=== PATIENT | female | born 1945 | race Caucasian/White ===

== ENCOUNTER 2020-08-15 05:15 | Observation (INO) ==
--- NOTE | 2020-08-07 10:24 | History & Physical Report ---
Date of Service August 07, 2020 date of surgery: 08/15/20 Procedure: Left Total Knee Arthroplasty Assessment & Plan (1) Arthritis of knee, left: Further care discussed with patient and at this point in time has failed conservative measures and would like to proceed with a left total knee replacement. Plan on discharge will be home with home health physical therapy. DVT prophalaxis with TEDs, SCDs and will also resume her Coumadin postop. Patient will have follow up appointment in our office two weeks post op for staple/suture removal and re-evaluation. Patient otherwise has no other questions or concerns. History of Present Illness Chief Complaint: left knee pain Primary Care Provider: Sade Wen is a 74 year old female who complains of left knee pain, presents for pre-op evaluation prior to a left total knee replacement by dr Alves at [facility]. she complains of pain, decreased range of motion, instability and stiffness in her left knee. she states that the symptoms have been chronic and non-traumatic. Currently the patient states that the symptoms are moderate-severe. The pain is described as aching, sharp and throbbing. The symptoms are aggravated by ascending stairs, daily activities, first steps while awake walking. Prior NSAIDs include Aleve and Ibuprofen. she has been treated with previous corti sone injections in the past without much relief Allergies Allergy/AdvReac Type Severity Reaction Status Date / Time latex Allergy Unknown local skin Verified 08/04/20 11:00 irritation Home Medications Medication Instructions Recorded Confirmed Type Vitamin 100 cap PO PM 06/06/20 08/04/20 History atorvastatin 40 mg PO PM 06/06/20 08/04/20 History cholecalciferol (vitamin D3) 125 mcg PO PM 06/06/20 08/04/20 History [Vitamin D3] diltiazem HCl 120 mg PO QAM 06/06/20 08/04/20 History ferrous sulfate 325 mg PO Q OTHER DAY 06/06/20 08/04/20 History magnesium 400 mg PO BID 06/06/20 08/04/20 History metoprolol tartrate 25 mg PO BID 06/06/20 08/04/20 History prednisone 10 mg PO QAM 06/06/20 08/04/20 History acetaminophen [Tylenol Extra 1,000 mg PO Q6H PRN 08/04/20 08/04/20 History Strength] apixaban [Eliquis] 5 mg PO BID 08/04/20 08/04/20 History aspirin [Aspir-81] 81 mg PO QAM 08/04/20 08/04/20 History omeprazole 20 mg PO QAM 08/04/20 08/04/20 History potassium chloride 10 meq PO BID 08/04/20 08/04/20 History vitamin B complex [Super B Complex] 1 cap PO QPM 08/04/20 08/04/20 History Past Med/Surg History Medical History Anemia Anxiety Aortic aneurysm does not meet criteria for surgery at this time/under surveillance by cardiology Arthritis Atrial fibrillation Depression GERD (gastroesophageal reflux disease) History of DVT (deep vein thrombosis) R/L DVT (08/2019) Hypertension LBBB (left bundle branch block) chronic dating back to at least 2013 per chart review Migraine Mitral valve prolapse per patient, not noted per available 2013 echo Obesity Osteoarthritis Primary pulmonary hypertension right heart cath (2012) with normal PA pressure Pulmonary embolism 08/2019 Pulmonary fibrosis 2L O2 HS + PRN daytime use, previously on sildenfil (no longer taking) Rheumatoid arthritis SOBOE (shortness of breath on exertion) O2 2L/MIN PRN DAYTIME-HS Stress incontinence Thyroid nodule under surveillance Surgical History Deviated septum s/p surgical repair History of anesthesia reaction SLOW TO WAKE UP History of ankle surgery History of appendectomy History of biopsy cardiac, thyroid History of cardiac cath multiple, most recent several years ago- no stents History of cataract surgery History of colonoscopy MULTIPLE History of esophagogastroduodenoscopy (EGD) History of hysterectomy TOTAL History of lung biopsy History of lung surgery REPAIR HIATAL HERNIA?? History of tonsillectomy Status post right knee replacement Right TKA: 05/10/14: SAB at L3-L4 + PNB at [facility] Family History Sister Family history of diabetes mellitus Social History Smoking Status: Never smoker Second Hand Exposure: Yes (FATHER SMOKED); Do You Dip or Chew Tobacco: No; Hx Alcohol Use: No Hx Substance Use: No Preferred Language: Ukrainian Communication Ability: Effective Instructional Support Services Director Required: No Beliefs That Will Affect Care: None Current Living Situation: Alone Other Information That Helps Us Care for You: No Feels Safe at Home: Yes Safety Concerns: Feels Safe At This Time Assistive Devices: Oxygen - at Night and Oxygen - Continuous Assistive Devices Comment: O2 2L/MIN DAYTIME PRN/HS Review of Systems Review of Systems: All systems reviewed & are unremarkable except as noted in HPI & below Constitutional: no fever, no chills and no sweats Respiratory: no cough and no dyspnea Cardiovascular: no chest pain, no dyspnea and no orthopnea Gastrointestinal: no abdominal pain, no nausea and no vomiting Musculoskeletal: as per Subjective / HPI Physical Exam Physical Exam: Ht: 5ft 8in Wt: 99.8kg Constitutional: WD/WN, vitals as above no acute distress Respiratory: normal respiratory effort, lungs clear to auscultation no respiratory distress, no labored breathing and does not use accessory muscles Cardiovascular: RRR, no murmur, no edema Gastrointestinal (Abdomen): normal bowel sounds, soft, nontender, no hepatosplenomegaly Musculoskeletal: Knee: + knee abnormal to inspection (Left Knee-), + effusion (+1 effusion), + surgical incision (well healed portals), + limited ROM of knee (ROM 0/3/110), + knee ROM with crepitation, + joint line tenderness (medial joint line) and + Froy's sign positive; no deformity, no skin erythema, no ecchymosis, no valgus laxity, no varus laxity, anterior drawer test negative, Eve's sign negative and pivot shift test negative Results & Data Results & Data ([facility]) Diagnostic Findings Left Knee X-ray: left knee series confirm advanced degenerative changes to the left knee, greatest lateral compartments and patellofemoral joint, showing joint space narrowing, osteophyte formation and subchondral sclerosis. no acute bony pathology noted.
--- NOTE | 2020-08-09 11:47 | Anesthesiology Consultation ---
Date of Service August 09, 2020 Assessment & Plan (1) Encounter for pre-operative examination: Patient seen at [facility] 06/09/20 by Michaela Weber PA-C. Case subsequently R/S due to covid surge capacity protocol. PCP Clearance 06/20/20 = "Reviewed EKG, chest xray and bloodwork and cleared for surgery." Cardiology Clearance 06/20/20 = "We are going to switch her to Eliquis 5 mg bid. I did tell her to stop her coumadin today and start her Eliquis on 06/22/20. Her HR and BP well controlled on her current regimen. She is scheduled for total knee replacement in June 2020. From a cardiac standpoint she is stable and asymptomatic...she is at low risk for cardiac complications. I told her to hold her Eliquis for 48 hours prior to her procedure*." Spoke to cardiology office. Per provider, OK to hold Eliquis for 72 hours for SAB. Spoke to patient to make her aware as well, last dose Friday 08/11. Possible difficult intubation based one exam per Michaela Weber at 06/09 [facility] appt. S/P Right TKA: 05/10/14: SAB at L3-L4 + PNB at [facility] COVID Status: As of 08/04 nurse assessment, patient denies travel to endemic area, known exposure/sick contacts, or symptoms of COVID19. Preoperative COVID19 testing completed on 08/08 at [facility]. Will obtain results. Chart Review Chart Review: Acceptable Risk for Surgery History Surgery Operation Date: 08/15/20 11:55 Proposed Procedures p Left Total Knee Arthroplasty - Ricardo Alves DO Height/Weight Height: 5 ft 8 in Weight: 99.79 kg Allergies Allergy/AdvReac Type Severity Reaction Status Date / Time latex Allergy Unknown local skin Verified 08/04/20 11:00 irritation Medications Home Medications Medication Instructions Recorded Confirmed Last Taken Vitamin 100 cap PO PM 06/06/20 08/04/20 Unknown atorvastatin 40 mg PO PM 06/06/20 08/04/20 Unknown cholecalciferol (vitamin D3) 125 mcg PO PM 06/06/20 08/04/20 Unknown [Vitamin D3] diltiazem HCl 120 mg PO QAM 06/06/20 08/04/20 Unknown ferrous sulfate 325 mg PO Q OTHER DAY 06/06/20 08/04/20 Unknown magnesium 400 mg PO BID 06/06/20 08/04/20 Unknown metoprolol tartrate 25 mg PO BID 06/06/20 08/04/20 Unknown prednisone 10 mg PO QAM 06/06/20 08/04/20 Unknown acetaminophen [Tylenol Extra 1,000 mg PO Q6H PRN 08/04/20 08/04/20 Unknown Strength] apixaban [Eliquis] 5 mg PO BID 08/04/20 08/04/20 Unknown aspirin [Aspir-81] 81 mg PO QAM 08/04/20 08/04/20 Unknown omeprazole 20 mg PO QAM 08/04/20 08/04/20 Unknown potassium chloride 10 meq PO BID 08/04/20 08/04/20 Unknown vitamin B complex [Super B Complex] 1 cap PO QPM 08/04/20 08/04/20 Unknown Past Medical History Medical History Anemia Anxiety Aortic aneurysm does not meet criteria for surgery at this time/under surveillance by cardiology Arthritis Atrial fibrillation Depression GERD (gastroesophageal reflux disease) History of DVT (deep vein thrombosis) R/L DVT (08/2019) Hypertension LBBB (left bundle branch block) chronic dating back to at least 2013 per chart review Migraine Mitral valve prolapse per patient, not noted per available 2013 echo Obesity Osteoarthritis Primary pulmonary hypertension right heart cath (2012) with normal PA pressure Pulmonary embolism 08/2019 Pulmonary fibrosis 2L O2 HS + PRN daytime use, previously on sildenfil (no longer taking) Rheumatoid arthritis SOBOE (shortness of breath on exertion) O2 2L/MIN PRN DAYTIME-HS Stress incontinence Thyroid nodule under surveillance Exercise / Class Metabolic Activity III < 4 Walking/Shop/Light housework Past Family History Family History Sister Family history of diabetes mellitus Past Surgical History Surgical History Deviated septum s/p surgical repair History of anesthesia reaction SLOW TO WAKE UP History of ankle surgery History of appendectomy History of biopsy cardiac, thyroid History of cardiac cath multiple, most recent several years ago- no stents History of cataract surgery History of colonoscopy MULTIPLE History of esophagogastroduodenoscopy (EGD) History of hysterectomy TOTAL History of lung biopsy History of lung surgery REPAIR HIATAL HERNIA?? History of tonsillectomy Status post right knee replacement Right TKA: 05/10/14: SAB at L3-L4 + PNB at [facility] Social History Smoking Status: Never smoker tobacco type: cigarettes Do You Dip or Chew Tobacco: No Hx Alcohol Use: No Hx Substance Use: No substance use type: does not use Testing Laboratory Results 08/04/20 WBC: 12.02 H/H: 11.4/38 PLATELETS: 274 SODIUM: 143 POTASSIUM: 4.2 CHLORIDE: 105 CO2: 30 BUN: 24 CREATININE: 1.10 GLUCOSE: 94 PT: 16.9 PTT: 36.7 INR: 1.49 UA: no bacteria A1C: 5.8% Electrocardiogram Date: 06/09/20 Echocardiogram Date: 02/05/19 EF: 60% LV Function: normal Other Findings: + LVH and + diastolic dysfunction (grade I) Valvular Disease: + MR (mild) Normal pulmonary artery pressure at 27 mmHg. Other Testing Electrocardiogram Date: 06/09/20 Rhythm with first-degree AV block at 73 bpm. Left bundle branch block. (LBBB chronic dating back to at least 2013 per chart review) Chest X-Ray Date: 06/09/20 FINDINGS: Cardiac silhouette is upper limits of normal in size. Blunting of the costophrenic angles with mild linear bibasilar densities suggestive of scarring/atelectasis. Postoperative changes of the lateral left lung. No pneumothorax or overt pulmonary edema. Bones appear grossly intact. IMPRESSION: Blunting of the costophrenic angles suggests small pleural effusions versus pleural parenchymal scarring. Linear bibasilar densities are likely atelectatic. Postoperative changes of the left lung. Will forward report to PCP/cardiology (patient will be seeing both prior to surgery). Cardiac Catheterization Date: 02/11/13 RHC showed normal resting RV and LV filling pressures with normal resting PA pressures and preserved cardiac output. Resting PVR was borderline elevated at 2.77. Diagnosis of exercise-induced PH.
[2020-08-15] MEDS ORDERED: GABAPENTIN 300 MG CAP PO SCH (06:00)
[2020-08-15] MEDS ORDERED: LR 500ML BOLUS, THEN 15ML/HR IV SCH (06:00)
[2020-08-15] MEDS ORDERED: TRANEXAMIC ACID 1,000 MG **IV Pre-op IV SCH (06:00)
[2020-08-15] MEDS ORDERED: ACETAMINOPHEN 500 MG TAB PO SCH (06:00)
[2020-08-15] MEDS ORDERED: oxyCODONE HCL 10 MG TABCR (OxyCONTIN) PO SCH (06:00)
[2020-08-15] MEDS ORDERED: ROPIVACAINE 0.5% HCL/PF 150 MG, BUPIVACAINE 0.75% MPF 20 ML, EPINEPHrine 30MG/30ML (OR ... INSTIL SCH (06:00)
[2020-08-15] MEDS ORDERED: FAMOTIDINE 20 MG TAB PO SCH (06:00)
[2020-08-15] MEDS ORDERED: LR 500ML BOLUS IV SCH (06:00)
[2020-08-15] MEDS ORDERED: CeleBREX 200 MG CAP PO SCH (06:00)
[2020-08-15] MEDS ORDERED: ceFAZolin 2000MG 2,000 MG/15 ML SYR IV SCH (06:00)
[2020-08-15] MEDS ORDERED: TRANEXAMIC ACID / 0.7% NACL 1,000 MG/100 ML BAG IV SCH (06:00)
[2020-08-15] MEDS ORDERED: METOCLOPRAMIDE HCL 10 MG TABLET PO SCH (06:00)
[2020-08-15] MEDS ORDERED: BUPIVACAINE 0.5 % 5 MG/1 ML PF 10ML VIAL ONE (06:23)
[2020-08-15] MEDS ORDERED: EPINEPHrine INJ 1 MG/ML AMP ONE (06:23)
[2020-08-15] MEDS ORDERED: ROPIVACAINE 0.5% 5 MG/ML 30 ML VIAL ONE (06:24)
[2020-08-15] MEDS ORDERED: MIDAZOLAM HCL 1 MG/ML 2ML VIAL ONE (06:56)
[2020-08-15] MEDS ORDERED: ATROPINE SULFATE 0.1 MG/ML 10ML SYR IV PRN (06:59)
[2020-08-15] MEDS ORDERED: ePHEDrine sulfate 50 MG/ML AMP IV PRN (06:59)
[2020-08-15] MEDS ORDERED: PHENYLEPHRINE 100MCG/ML 5ML SYR IV PRN (06:59)
[2020-08-15] MEDS ORDERED: MEPERIDINE HCL 25 MG/ML CARP/VIAL IV PRN (06:59)
[2020-08-15] MEDS ORDERED: HYDROmorphone INJ 1 MG/ML SYRINGE IV PRN (06:59)
[2020-08-15] MEDS ORDERED: LABETALOL HCL IV 5 MG/ML 20ML IV PRN (06:59)
[2020-08-15] MEDS ORDERED: ONDANSETRON INJ 2 MG/ML 2 ML VIAL IV PRN ×2 (06:59→10:13)
[2020-08-15] MEDS ORDERED: fentaNYL citrate 100 MCG/2 ML VIAL IV PRN (06:59)
[2020-08-15] MEDS ORDERED: ORTHO JOINT ANESTHETIC ONE (07:00)
[2020-08-15] MEDS ORDERED: BACITRACIN INJ 50,000 UNIT VIAL ONE (07:00)
--- NOTE | 2020-08-15 07:16 | History & Physical Bridge Note ---
Date of Service August 15, 2020 History & Physical Bridge Note I have examined the patient, reviewed the History & Physical and in the interval since the performance of the History & Physical I have noted the following changes of clinical significance: no changes noted
--- NOTE | 2020-08-15 08:28 | Operative Report ---
Post Operative Report Pre & Post Diagnosis Operation Date: 08/15/20 07:15 Pre-Op Diagnosis: Osteoarthritis, Left Knee Post-Op Diagnosis: Osteoarthritis, Left Knee I identified the patient and participated in the time-out.: Yes Procedure Operation Date: 08/15/20 07:15 Actual Procedures p Left Total Knee Arthroplasty(LeftUtilizing Cruz & Nephew journey 2 patient matched total knee arthroplasty size 4 femur 4 tibia 15 polyethylene 29 oval patella) - Ricardo Alves DO Surgeon Ricardo Alves DO Air Turning Machine Feeder Darryl CRUZ Estimated Blood Loss 5 Findings Consistent with Post-Op Diagnosis Patient presents with severe end-stage tricompartmental degenerative joint disease no response to conservative management the above findings were not consistent with subchondral sclerosis marginal osteophytes eburnated [id number] varus alignment moderate to large effusion Specimens Bone and cartilage Drains Medium bore Hemovac Anesthesia Type MAC Spinal Regional Complications none Disposition Accompanied Patient To Recovery: No Disposition: Recovery Room Indications Patient presents with severe end-stage DJD no response to conservative management for total knee arthroplasty patient failed attempted corticosteroid injection Visco supplementation relative rest activity modification bracing physical therapy the above intraoperative findings were noted Description of Procedure After proper prepping and draping of the left lower extremity anterior midline incision was made over the region of the extensor extensor mechanism after meticulous hemostasis was obtained and maintained in subcutaneous tissues a medial parapatellar incision was made The patella was subluxed lateralward the medial lateral gutter were cleaned from any hypertrophic synovitis and scar tissue of the distal femoral block was placed and the distal femoral osteotomy cut was made subsequently the chamfers anterior and posterior osteotomy cuts were made utilizing the 4-in-1 block the tibia was subsequently subluxed anteriorward medial and ateral meniscal remnants were excised in their entirety remnants of the anterior and posterior cruciate ligaments were excised in their entirety excellent exposure of the proximal tibia was obtained the tibial osteotomy guide was placed on the proximal tibial osteotomy cut was made once again the knee was irrigated with copious amounts of sterile saline solution the patella was subsequently everted lateralward thickened scar tissue around the patella was removed the patella was subsequently cut utilizing a freehand technique and was drilled prepared for final preparation and placement of patella socially flexion-extension gaps were checked and the equal and symmetric trials were placed to the appropriate femoral and tibial trials with poly-spacer being placed for equal flexion and extension gaps and full range of motion including extension to 0 and flexion to 140 the trial components after having been taken to recovery range of motion was subsequently removed meticulous hemostasis was obtained and maintained subsequently a knee block injection of emily int cocktail including ropivacaine 0.5% 150 mg. Bupivacaine 0.5% epinephrine 1- 200,030 mL's toradol 30 mg dexamethasone 4 mg ketamine 10 mg clonidine 100 micrograms normal saline solution 30 mg was infiltrated into the soft tissues of the posterior knee medial lateral gutters and periosteal synovium special attention was paid to protect neurovascular structures at all times subsequently trial components having been removed the knee was irrigated with sterile saline solution. debris was removed the proximal tibia was subsequently prepared and was made ready for the placement of the tibial component tibial component was also cemented and tamped into position the femoral component was subsequently placed and cemented in the position the patellar component was subsequently cemented in position because hemostasis once again obtained and maintained wound having been thoroughly irrigated with debridement and debridement lavage was performed as well as a medial parapatellar incision closed with #1 Vicryl in interrupted fashion subcutaneous was closed with #2 Vicryl skin was closed with skin clips. PA-C was necessary for prepping and drapping as well as wound closure of deep fascia Sub cutaneous tissue and skin and was necessary for the case. A sterile compressive dressing was placed patient was taken to recovery in stable condition of report dictated by Long I attest to the content of the Intraoperative Record and any orders documented therein. Any exceptions are noted below. I attest to the content of the Intraoperative Record and any orders documented therein. Any exceptions are noted below.
[2020-08-15] MEDS ORDERED: PHENYLEPHRINE 100MCG/ML 5ML SYR ONE (09:08)
[2020-08-15] MEDS ORDERED: PROPOFOL IV EMULSION 10 MG/ML 20 ML VIAL IV ONE (09:08)
[2020-08-15] MEDS ORDERED: ePHEDrine sulfate 50 MG/ML SYR ONE (09:08)
--- NOTE | 2020-08-15 09:41 | XRay Report ---
XR knee LT 1 or 2V routine CLINICAL HISTORY: Postoperative evaluation. COMPARISON: None FINDINGS: Alignment of the total left knee arthroplasty is anatomic. There is no periprosthetic frac ture or unexpected radiopaque foreign body. Drains are in place. IMPRESSION: Expected findings following total left knee arthroplasty. ACT 112: Negative or not required by law. Electronically signed by: Tru Muro M.D. 08/15/2020 9:39 AM
[2020-08-15] MEDS: SODIUM CHLORIDE 0.9% 1000ML 1,000 ML IV SCH ×2 (10:00→19:24)
--- NOTE | 2020-08-15 10:01 | Anesthesiology Progress Note ---
Date of Service August 15, 2020 Anesthesia Post Procedure Vital Signs Vital Signs: Temp Pulse Pulse Resp BP BP Pulse Ox 08/15/20 09:45 36.9 C 60 15 122/63 100 08/15/20 09:35 57 L 15 123/61 100 08/15/20 09:25 59 L 14 120/60 100 08/15/20 09:16 36.8 C 70 19 108/49 L 98 08/15/20 06:14 36.5 C 76 18 157/82 H 96 Pain Intensity Left Shoulder: Pain Intensity: 2 Transfer of Care Handoff Completed per policy Notes Mental Status: alert / awake / arousable Patient Amnestic to Procedure: Yes Nausea / Vomiting: adequately controlled Pain: adequately controlled Airway Patency, RR, SpO2: stable & adequate BP & HR: stable & adequate Hydration State: stable & adequate Neuraxial Anesthesia: was administered and sensory block is resolving Anesthetic Complications: no major complications apparent and Pt Satisfied with anesthetic care
[2020-08-15] MEDS ORDERED: NALOXONE HCL 0.4 MG/1 ML VIAL/CARP IV PRN (10:13)
[2020-08-15] MEDS ORDERED: bisacodyL 10 MG SUPP PR PRN (10:13)
[2020-08-15] MEDS ORDERED: MAGNESIUM HYDROXIDE SUSP 30 ML UDC PO PRN (10:13)
[2020-08-15] MEDS ORDERED: HYDROmorphone INJ 0.5 MG/0.5 ML SYR IV PRN (10:13)
[2020-08-15] MEDS: ACETAMINOPHEN 500 MG TAB PO SCH ×2 (13:01→21:47)
[2020-08-15] MEDS: ceFAZolin 2000MG 2,000 MG/15 ML SYR IV SCH ×2 (13:01→21:47)
[2020-08-15] MEDS: FERROUS GLUCONATE 324 MG TAB PO SCH (16:11)
[2020-08-15] MEDS: oxyCODONE HCL IR 5 MG TAB (IMMEDIATE RELEASE) PO PRN (16:30)
[2020-08-15] MEDS ORDERED: CHOLECALCIFEROL 1,000 UNITS 25 MCG TAB PO SCH (21:00)
[2020-08-15] MEDS ORDERED: ATORVASTATIN 40 MG TAB PO SCH (21:00)
[2020-08-15] MEDS ORDERED: SENNA 8.6 MG TAB PO SCH (21:00)
[2020-08-15] MEDS: METOPROLOL TARTRATE 25 MG TAB PO SCH (21:44)
[2020-08-15] MEDS: DOCUSATE SODIUM 100 MG CAP PO SCH (21:44)
[2020-08-15] MEDS: MAGNESIUM OXIDE 400 MG TAB PO SCH (21:45)
[2020-08-15] MEDS: POTASSIUM CHLORIDE 10 MEQ TABCR PO SCH (21:52)
[2020-08-16] MEDS: oxyCODONE HCL IR 5 MG TAB (IMMEDIATE RELEASE) PO PRN ×2 (01:35→09:08)
[2020-08-16] MEDS: ACETAMINOPHEN 500 MG TAB PO SCH (04:46)
[2020-08-16 06:09] LABS: Hematocrit (blood only) 30.5 % (37-47); Hemoglobin 9.7 g/dL (12.0-16.0); Mean Corpuscular Hgb Conc 31.8 g/dL (32-36); Mean Corpuscular Volume 88.2 fL (80-100); Mean Platelet Volume 9.1 fL (7.4-10.4); Platelet Count 245 K/uL (130-400); RDW Coefficient of Variation 14.9 % (11.5-14.5); RDW Standard Deviation 47.9 fL (36.4-46.3); Red Blood Count 3.46 M/uL (4.2-5.4); White Blood Count 14.32 K/uL (4.8-10.8)
[2020-08-16 06:48] LABS: BUN Creatinine Ratio 22.9 (10-20); Calcium 9.1 mg/dl (8.5-10.1); Creatinine Clr Calc Pharmacy 57.6 ml/min; Est GFR (African American) 59.6; Est GFR (Non-African American) 51.5; Potassium 4.6 mmol/L (3.5-5.1)
[2020-08-16] MEDS: FERROUS GLUCONATE 324 MG TAB PO SCH (07:50)
--- NOTE | 2020-08-16 08:01 | Anesthesiology Progress Note ---
Date of Service August 16, 2020 Anesthesia Post Procedure Vital Signs Vital Signs: Temp Pulse Pulse Resp BP Pulse Ox 08/16/20 03:36 36.6 C 66 18 136/82 97 08/15/20 21:58 36.3 C L 73 18 130/80 98 08/15/20 21:41 81 128/72 08/15/20 19:06 36.5 C 71 16 121/76 94 08/15/20 15:58 36.4 C L 69 16 115/73 91 08/15/20 12:57 36.4 C L 60 16 111/67 92 08/15/20 12:03 55 L 16 105/61 93 08/15/20 11:05 66 16 105/64 93 08/15/20 10:27 64 16 114/67 97 08/15/20 10:00 36.4 C L 61 14 112/69 95 08/15/20 09:45 36.9 C 60 15 122/63 100 08/15/20 09:35 57 L 15 123/61 100 08/15/20 09:25 59 L 14 120/60 100 08/15/20 09:16 36.8 C 70 19 108/49 L 98 Pain Intensity Left Shoulder: Pain Intensity: 2 Left Knee: Pain Intensity: 3 Notes Mental Status: alert / awake / arousable and participated in evaluation Patient Amnestic to Procedure: Yes Nausea / Vomiting: adequately controlled Pain: adequately controlled Airway Patency, RR, SpO2: stable & adequate Hydration State: stable & adequate Neuraxial Anesthesia: was administered and sensory block is resolving Anesthetic Complications: no major complications apparent and Pt Satisfied with anesthetic care
--- NOTE | 2020-08-16 08:07 | Orthopedic Progress Note ---
Date of Service August 16, 2020 Assessment & Plan (1) History of total left knee replacement: POD #1 s/p Left TKA pt/ot dvt proph with ROSALIE/SCD/ASA plan for d/c home with HHPT, recheck after PT today for poss d/c. will d/c hemovac prior to discharge Admission and Anticipated Discharge Date Admission Date: August 15, 2020 Subjective POD #1 s/p Left TKA Review of Systems Constitutional: no fever, no chills and no sweats Respiratory: no cough and no dyspnea Cardiovascular: no chest pain and no dyspnea Gastrointestinal: no abdominal pain, no nausea and no vomiting Physical Exam Physical Exam: Vital Signs Temp 36.5 C 08/16/20 08:02 Pulse 63 08/16/20 08:02 Resp 16 08/16/20 08:02 BP 149/77 H 08/16/20 08:02 Pulse Ox 99 08/16/20 08:02 Intake & Output 08/15/20 08/16/20 08/16/20 18:59 06:59 18:59 Intake Total 2040 / 3898.333 1858.333 / 3898.33 3 Output Total 505 / 1455 950 / 1455 260 / 260 Balance 1535 / 2443.333 908.333 / 2443.333 -260 / -260 Weight 99 kg Intake: IV 800 / 2358.333 1558.333 / 2358.33 3 Lr 1,000 ml @ 15 mls/hr IV . 800 / 800 Q24H JOLANTA Rx#:[id number] Nss 1000ML 1,0 00 ml @ 100 mls/ 1558.333 / 1558.33 3 hr IV .Q10H SC H Rx#:[id number] IV Perioperative 1000 / 1000 Oral 240 / 540 300 / 540 Output: Urine 250 / 925 675 / 925 260 / 260 Estimated Blood Loss 5 / 5 Drain Output 250 / 525 275 / 525 Left Knee Hemo vac 250 / 525 275 / 525 Other: # Unmeasured Voi ds 1 Constitutional: WD/WN, vitals as above no acute distress Musculoskeletal: Left Leg: NVDI, calf SNT, negative javed sign. DP palpable, able to wiggle toes/ankle movement without difficulty. dressing clean dry and intact. Results & Data ([facility]) Vital Signs (Past 12 Hours) Vital Signs Temp Pulse Pulse Resp BP Pulse Ox 08/16/20 08:02 36.5 C 63 16 149/77 H 99 08/16/20 03:36 36.6 C 66 18 136/82 97 08/15/20 21:58 36.3 C L 73 18 130/80 98 08/15/20 21:41 81 128/72 Laboratory Results Laboratory Results WBC 14.32 K/uL (4.8-10.8) H 08/16/20 05:32 RBC 3.46 M/uL (4.2-5.4) L 08/16/20 05:32 Hgb 9.7 g/dL (12.0-16.0) L 08/16/20 05:32 Hct 30.5 % (37-47) L 08/16/20 05:32 MCV 88.2 fL (80-100) 08/16/20 05:32 MCH 28.0 pg (25-34) 08/16/20 05:32 MCHC 31.8 g/dL (32-36) L 08/16/20 05:32 RDW Std Deviation 47.9 fL (36.4-46.3) H 08/16/20 05:32 RDW Coeff of Fara 14.9 % (11.5-14.5) H 08/16/20 05:32 Plt Count 245 K/uL (130-400) 08/16/20 05:32 MPV 9.1 fL (7.4-10.4) 08/16/20 05:32 Sodium 140 mmol/L (136-145) 08/16/20 05:32 Potassium 4.6 mmol/L (3.5-5.1) 08/16/20 05:32 Chloride 107 mmol/L (98-107) 08/16/20 05:32 Carbon Dioxide 28 mmol/L (21-32) 08/16/20 05:32 Anion Gap 5.0 (3-11) 08/16/20 05:32 BUN 25 mg/dl (7-18) H 08/16/20 05:32 Creatinine 1.07 mg/dl (0.6-1.2) 08/16/20 05:32 Est Cr Clr Drug Dosing 57.6 ml/min 08/16/20 05:32 Est GFR ( Amer) 59.6 08/16/20 05:32 Est GFR (Non-Af Amer) 51.5 08/16/20 05:32 BUN/Creatinine Ratio 22.9 (10-20) H 08/16/20 05:32 Glucose 121 mg/dl (70-99) H 08/16/20 05:32 Calcium 9.1 mg/dl (8.5-10.1) 08/16/20 05:32 Blood Type B Positive 08/15/20 05:52 Antibody Screen NEGATIVE 08/15/20 05:52 Diagnostic Findings XR knee LT 1 or 2V routine CLINICAL HISTORY: Postoperative evaluation. COMPARISON: None FINDINGS: Alignment of the total left knee arthroplasty is anatomic. There is no periprosthetic fracture or unexpected radiopaque foreign body. Drains are in place. IMPRESSION: Expected findings following total left knee arthroplasty.
[2020-08-16] MEDS: MAGNESIUM OXIDE 400 MG TAB PO SCH (08:23)
[2020-08-16] MEDS: METOPROLOL TARTRATE 25 MG TAB PO SCH (08:23)
[2020-08-16] MEDS: POTASSIUM CHLORIDE 10 MEQ TABCR PO SCH (08:23)
[2020-08-16] MEDS: DOCUSATE SODIUM 100 MG CAP PO SCH (08:23)
[2020-08-16] MEDS ORDERED: MULTIVITAMIN TAB PO SCH (09:00)
[2020-08-16] MEDS ORDERED: ASPIRIN 81 MG ECTAB PO SCH (09:00)
[2020-08-16] MEDS ORDERED: dilTIAZem HCL 120 MG CAPCR PO SCH (09:00)
[2020-08-16] MEDS ORDERED: APIXABAN 5 MG TABLET PO SCH (09:00)
[2020-08-16] MEDS ORDERED: predniSONE 10 MG TABLET PO SCH (09:00)
--- NOTE | 2020-08-18 10:58 | Discharge Summary ---
Date of Service August 18, 2020 Admission HPI Per Admitting Provider Bettye is a 74 year old female who complains of left knee pain, presents for pre-op evaluation prior to a left total knee replacement by dr Alves at [facility]. she complains of pain, decreased range of motion, instability and stiffness in her left knee. she states that the symptoms have been chronic and non-traumatic. Currently the patient states that the symptoms are moderate-severe. The pain is described as aching, sharp and throbbing. The symptoms are aggravated by ascending stairs, daily activities, first steps while awake walking. Prior NSAIDs include Aleve and Ibuprofen. she has been treated with previous c ortisone injections in the past without much relief Admission Exam Per Admitting Provider Physical Exam Physical Exam: Ht: 5ft 8in Wt: 99.8kg Constitutional: WD/WN, vitals as above no acute distress Respiratory: normal respiratory effort, lungs clear to auscultation no respiratory distress, no labored breathing and does not use accessory muscles Cardiovascular: RRR, no murmur, no edema Gastrointestinal (Abdomen): normal bowel sounds, soft, nontender, no hepatosplenomegaly Musculoskeletal: Knee: + knee abnormal to inspection (Left Knee-), + effusion (+1 effusion), + surgical incision (well healed portals), + limited ROM of knee (ROM 0/3/110), + knee ROM with crepitation, + joint line tenderness (medial joint line) and + Froy's sign positive; no deformity, no skin erythema, no ecchymosis, no valgus laxity, no varus laxity, anterior drawer test negative, Eve's sign negative and pivot shift test negative Principal Diagnosis Left knee osteoarthritis Discharge Data Allergies Allergy/AdvReac Type Severity Reaction Status Date / Time latex Allergy Unknown local skin Verified 08/15/20 05:49 irritation Consultations 08/15/20 10:13 Consult Case Management - Discharge Planning Routine Procedures Performed Operation Date: 08/15/20 07:15 Actual Procedures p Left Total Knee Arthroplasty(Left) - Ricardo Alves DO Ordered Studies 08/15/20 05:00 US - OR guided needle placemen Routine Hospital Course (1) Arthritis of knee, left: Date of Service August 16, 2020 Assessment & Plan (1) History of total left knee replacement: POD #1 s/p Left TKA pt/ot dvt proph with ROSALIE/SCD/ASA plan for d/c home with HHPT, recheck after PT today for poss d/c. will d/c hemovac prior to discharge Admission and Anticipated Discharge Date Admission Date: August 15, 2020 Subjective POD #1 s/p Left TKA Review of Systems Constitutional: no fever, no chills and no sweats Respiratory: no cough and no dyspnea Cardiovascular: no chest pain and no dyspnea Gastrointestinal: no abdominal pain, no nausea and no vomiting Physical Exam Physical Exam: Vital Signs Temp 36.5 C 08/16/20 08:02 Pulse 63 08/16/20 08:02 Resp 16 08/16/20 08:02 BP 149/77 H 08/16/20 08:02 Pulse Ox 99 08/16/20 08:02 Intake & Output 08/15/20 08/16/20 08/16/20 18:59 06:59 18:59 Intake Total 2040 / 3898.333 1858.333 / 3898.33 3 Output Total 505 / 1455 950 / 1455 260 / 260 Balance 1535 / 2443.333 908.333 / 2443.333 -260 / -260 Weight 99 kg Intake: IV 800 / 2358.333 1558.333 / 2358.33 3 Lr 1,000 ml @ 15 mls/hr IV . 800 / 800 Q24H JOLANTA Rx#:[id number] Nss 1000ML 1,0 00 ml @ 100 mls/ 1558.333 / 1558.33 3 hr IV .Q10H SC H Rx#:[id number] IV Perioperative 1000 / 1000 Oral 240 / 540 300 / 540 Output: Urine 250 / 925 675 / 925 260 / 260 Estimated Blood Loss 5 / 5 Drain Output 250 / 525 275 / 525 Left Knee Hemo vac 250 / 525 275 / 525 Other: # Unmeasured Voi ds 1 Constitutional: WD/WN, vitals as above no acute distress Musculoskeletal: Left Leg: NVDI, calf SNT, negative javed sign. DP palpable, able to wiggle toes/ankle movement without difficulty. dressing clean dry and intact. Results & Data ([facility]) Vital Signs (Past 12 Hours) Vital Signs Temp Pulse Pulse Resp BP Pulse Ox 08/16/20 08:02 36.5 C 63 16 149/77 H 99 08/16/20 03:36 36.6 C 66 18 136/82 97 08/15/20 21:58 36.3 C L 73 18 130/80 98 08/15/20 21:41 81 128/72 Laboratory Results Laboratory Results WBC 14.32 K/uL (4.8-10.8) H 08/16/20 05:32 RBC 3.46 M/uL (4.2-5.4) L 08/16/20 05:32 Hgb 9.7 g/dL (12.0-16.0) L 08/16/20 05:32 Hct 30.5 % (37-47) L 08/16/20 05:32 Total Time Total Time Spent Total Time Spent (In Minutes): 5 Discharge Plan Discharge Items Patient Disposition: Home - Self-Care Reason For Visit: Osteoarthritis, Left Knee Discharge Diagnosis: OSTEOARTHRITIS LEFT KNEE Activity: Per Instructions section Lifting: Wait until after follow-up appointment Weightbearing Comment: TOLERATED WITH WALKER Non-emergency contact: Surgeon Call non-emergency contact if: your pain is not controlled, your temperature is above 101.5, your wound has increased redness and your wound has increased drainage Follow-up/Referrals: Sade Blanchard M.D. [Primary Care Provider] - Diet: Regular Addtl Attending Provider Instructions: ACTIVITY RECOMMENDATIONS: SELF CARE INSTRUCTIONS AFTER TOTAL KNEE REPLACEMENT A. You may need to continue a physical therapy program after discharge from the hospital. There are several options available to you. Your doctor will assist you in selecting the best one for you. 1. An out-patient facility 2 to 3 times a week for therapy or home therapy. 2. Continue working on all exercises taught to you in the hospital. Your goals should be to increase bending of your knee to 90 degrees and beyond and to fully straighten your knee. B. You may progress at your own pace from walking with a walker or crutches to a cane; then to no assistive devices. C. Make walking a part of your daily routine. Be up as much as comfortable with rest periods throughout the day. Rest with leg elevation is very important. Use the ice wrap frequently for the first 3-4 weeks. D. There are no restrictions on activities. You may ride in a car, shop, participate in software maintenance engineer and all social activities. E. Wear the long elastic stockings (ROSALIE hose) 20 hours a day for 2 weeks after surgery. They can be removed several times a day for laundering and for a bath. F. You may shower, no tub baths until cleared by your doctor. SPECIAL CARE INSTRUCTIONS: VERY IMPORTANT TO READ AND REVIEW A. There are a few signs you need to watch for after you are home. Call [facility] if you notice any of the followin. Increased severe knee pain. Some pain is expected especially when you exercise. 2. Increased swelling in your leg or knee; pain or swelling of the calf muscle in either lower leg. 3. Any fluid drainage from the incision. 4. Shortness of breath or chest pain. B. Please call [facility] at if you have any concerns or questions about your operation or recovery. The doctor or his nurse will return your call promptly. C. You must take antibiotics before dental work, bladder, bowel or other surgery. Your doctor will provide you with a permanent care to carry describing this precaution. IMPORTANT: * CONTINUE YOUR APIXABAN USUAL. . * CALL IF INCREASED PAIN, REDNESS, DRAINAGE OR FEVER GREATER THAT 101. * WEAR ROSALIE HOSE 20 HOURS PER DAY FOR 2 WEEKS. * DERMABOND Prineo- This is a mesh tape dressing that is covered with glue. It should remain in place until the incision is properly healed, usually 10-14 days. This dressing is designed to naturally slough off. You may trim the excess mesh tape as it peels off. Incision may be briefly wet in a shower. Dry immediately by blotting with a clean, dry towel. Do not bath or swim until instructed by your doctor. Do not scratch, rub, or pick at the dressing. Do n ot apply any topical ointments or lotions until dressing is completely removed and/or instructed by your doctor. There may be a small piece of suture material at one end of your incision. Do not pull or trim this. If it is bothersome or catching on clothing, you may cover it with a band-aid. Call with any questions. . FOLLOW UP VISIT: If appointment is not already scheduled: Please call [facility] to make a follow-up appointment for 2 weeks after your surgery at . Pending Studies at Discharge: No Stand-Alone Forms: My [facility], Opioid Pain Management, Smoking Cessation Medications and DC Order Prescriptions: New acetaminophen 500 mg Tablet 1,000 mg PO Q8 21 Days Qty: 126 RF: 0 oxycodone 5 mg Tablet 5 - 10 mg PO Q6H PRN (Reason: pain) Qty: 30 RF: 0 docusate sodium 100 mg Capsule 100 mg PO BID 10 Days Qty: 20 RF: 0 cefadroxil 500 mg capsule 500 mg PO BID 10 Days Qty: 20 RF: 0 Continued atorvastatin 40 mg Tablet 40 mg PO PM RF: 0 prednisone 10 mg Tablet 10 mg PO QAM RF: 0 ferrous sulfate 325 mg (65 mg iron) Tablet 325 mg PO Q OTHER DAY RF: 0 diltiazem HCl 120 mg Capsule,Ext.Rel 24h Degradable 120 mg PO QAM RF: 0 magnesium 200 mg Tablet 400 mg PO BID RF: 0 metoprolol tartrate 25 mg Tablet 25 mg PO BID RF: 0 cholecalciferol (vitamin D3) [Vitamin D3] 125 mcg (5,000 unit) Tablet 125 mcg PO PM RF: 0 Vitamin 100 cap PO PM RF: 0 Eliquis 5 mg Tablet 5 mg PO BID RF: 0 vitamin B complex Capsule 1 cap PO QPM RF: 0 potassium chloride 10 mEq Capsule, Extended Release 10 meq PO BID RF: 0 aspirin 81 mg Tablet,Delayed Release (Dr/Ec) 81 mg PO QAM RF: 0 omeprazole 20 mg Capsule,Delayed Release(Dr/Ec) 20 mg PO QAM RF: 0 Discontinued acetaminophen [Tylenol Extra Strength] 500 mg Capsule 1,000 mg PO Q6H PRN (Reason: Pain) RF: 0 Discharge Orders: Discharge Order (Routine); Ordered 08/16/20 Ordered By: Calos Gordon/Other Patient Handouts: Total Knee Replacement, After Knee Replacement: Back at Home, Knee Replace First Month, Knee Replace Swelling, Knee Replacement Knee Health, Knee Replace After Hospital, Knee Replace After Surgery Admission Data Admit Date/Time: 08/15/20 09:22 Attending Provider: Ricardo Alves Admit Provider: Ricardo Alves Primary Care Provider: Sade Blanchard Other Interventions: Discharge Summary Assessment (RN) Last Done: 08/16/20 08:37
== END 2020-08-16 11:57 | disposition home or self-care (01) ==
LOC: 3E 05:15 → ASU 05:15